=== PATIENT | male | born 1995 | race Caucasian/White ===

== ENCOUNTER 2017-11-11 11:38 | Emergency (ER) | payer MEDICAID ==
[~2017-11-11] VITALS: Ht 167.6 cm; Wt 73.0 kg
[2017-11-11 11:39] VITALS: BP 124/76
[2017-11-11] MEDS ORDERED: IBUPROFEN 600MG TABLET PO ONE (12:30)
[2017-11-11] MEDS ORDERED: TETANUS, DIPHTHERIA, PERTUSSIS VAC/PF 0.5ML (>7YR OLD) IM ONE (12:45)
[2017-11-11] MEDS ORDERED: LIDOCAINE HCL/PF 1% 10 MG/ML 5ML VIAL IJ ONE (14:00)
[2017-11-11] MEDS ORDERED: BACITRACIN ZINC OINT UDPKT TOP ONE (14:00)
== END 2017-11-11 15:51 | disposition home or self-care (01) ==
LOC: ER 11:38
DX: S61.210A Laceration without foreign body of right index finger without damage to nail, initial encounter (principal); F12.10 Cannabis abuse, uncomplicated; W26.8XXA Contact with other sharp object(s), not elsewhere classified, initial encounter; Y93.89 Activity, other specified; Y92.513 Shop (commercial) as the place of occurrence of the external cause
CPT/HCPCS: 12001; 90471; 90715; 99283; X7700; Z7610

== ENCOUNTER 2019-10-18 12:40 | Inpatient (IN) | payer MEDICAID ==
[~2019-10-18] VITALS: Ht 167.6 cm; Wt 71.9 kg
[2019-10-18] MEDS ORDERED: ZOLPIDEM TARTRATE 5MG TABLET PO PRN (14:45)
[2019-10-18] MEDS ORDERED: HYDROCODONE/ACETAMINOPHEN 10/325MG TABLET PO PRN (14:45)
[2019-10-18 14:51] LABS: BASOPHILS % 0.7 % (0.0-2.0); EOSINOPHILS % 0.4 % (0.0-5.0); HEMATOCRIT. 41.2 % (42.0-52.0); HEMOGLOBIN. 13.8 g/dL (14.0-18.0); LYMPHOCYTES % 13.5 % (20.0-50.0); MEAN CORPUSCULAR HEMOGLOBIN 27.8 pg (28.0-32.0); MEAN CORPUSCULAR VOLUME 82.7 fL (80.0-94.0); MEAN PLATELET VOLUME 8.7 fl (7.4-10.4); MONOCYTES % 7.2 % (2.0-8.0); NEUTROPHILS % 78.2 % (40.0-76.0); PLATELET 278 x1000/uL (130-400); RED BLOOD CELL COUNT 4.98 mill/uL (4.7-6.1); RED CELL DISTRIBUTION WIDTH 14.3 % (11.6-14.6)
[2019-10-18 14:58] LABS: CHLORIDE 105 mEq/L (98-107)
[2019-10-18 16:10] LABS: INR 1.1; PROTHROMBIN TIME 11.6 sec (9.6-11.0)
[2019-10-18] MEDS ORDERED: CHLORHEXIDINE GLUCONATE 4% EXTERNAL USE TOP PRN (21:00)
[2019-10-18 22:15] VITALS: BP 110/80
[2019-10-19 08:00] VITALS: BP 105/66
[2019-10-19] MEDS ORDERED: BUPIVACAINE HCL/PF 0.25% (2.5MG/ML) 10ML ONE ×3 (10:48→10:50)
[2019-10-19] MEDS ORDERED: VANCOMYCIN HCL 1 GM/VIAL ONE (10:48)
[2019-10-19] MEDS ORDERED: BACITRACIN 15GM TUBE TOP ONE (10:48)
[2019-10-19] MEDS ORDERED: BACITRACIN 50,000 UNITS/VIAL ONE (10:52)
[2019-10-19] MEDS ORDERED: ROPIVACAINE HCL 10MG/ML 20 ML VIAL EPI ONE (11:16)
[2019-10-19] MEDS ORDERED: BUPIVACAINE HCL/EPINEPHRINE/PF 0.5%/0.0005 10ML ONE (11:29)
[2019-10-19] MEDS ORDERED: BUPIVACAINE/EPINEPH/PF 0.25%/0.0005 10ML ONE (11:38)
[2019-10-19] MEDS ORDERED: CEFAZOLIN SODIUM 1000MG/VIAL ONE (11:56)
[2019-10-19] MEDS ORDERED: SODIUM CHLORIDE 0.9% 1,000 ML IV ONE (13:05)
[2019-10-19] MEDS ORDERED: ONDANSETRON HCL 4MG/2ML INJ IV PRN ×2 (13:15→14:00)
[2019-10-19] MEDS ORDERED: MEPERIDINE HCL/PF 25MG/ML CPJ IV PRN ×2 (13:15)
[2019-10-19] MEDS ORDERED: HYDROMORPHONE HCL/PF 2MG/ML CPJ IV PRN (13:15)
[2019-10-19] MEDS ORDERED: MORPHINE SULFATE 2 MG/ML CPJ (NOT FOR IM USE) IV PRN (13:15)
[2019-10-19] MEDS ORDERED: KETOROLAC 30MG/ML VIAL IV PRN (14:00)
[2019-10-19] MEDS ORDERED: HYDROCODONE/ACETAMINOPHEN 10/325MG TABLET PO PRN (14:00)
[2019-10-19 14:55] VITALS: BP 125/72
[2019-10-19 15:00] VITALS: BP 125/72
== END 2019-10-19 15:35 | disposition home or self-care (01) | DRG 315 ==
LOC: ER 12:40 → 6EST 15:48 → EDBEDREQSVC 15:52 → EDBEDREQ 15:52 → ENRESERV 20:46
PROVIDERS: ADMIT Orthopaedic Surgery; ATTEND Orthopaedic Surgery
PROC: 0PSH34Z Reposition Right Radius with Internal Fixation Device, Percutaneous Approach (ICD-10-PCS; principal; 2019-10-19)
PROC: 0PSK34Z Reposition Right Ulna with Internal Fixation Device, Percutaneous Approach (ICD-10-PCS; 2019-10-19)
DX: S52.571A Other intraarticular fracture of lower end of right radius, initial encounter for closed fracture (principal); S52.611A Displaced fracture of right ulna styloid process, initial encounter for closed fracture; W11.XXXA Fall on and from ladder, initial encounter; Z20.828 Contact with and (suspected) exposure to other viral communicable diseases; S60.811A Abrasion of right wrist, initial encounter; Y93.89 Activity, other specified; Y92.89 Other specified places as the place of occurrence of the external cause; Y99.8 Other external cause status
CPT/HCPCS: 36415; 73110; 76000; 80053; 85025; 87635; 93005; 99285; A4565; J0171; J0690; J2795; J3370; J3490